=== PATIENT | female | born 1965 | race African-American/Black ===

== ENCOUNTER 2019-07-21 09:50 | Emergency (ER) | payer BC ==
[2019-07-21] MEDS ORDERED: MECLIZINE HCL 25 MG TABLET PO ONE (10:39)
[2019-07-21] MEDS ORDERED: ASPIRIN 81 MG TABLET, CHEWABLE PO ONE (10:40)
--- NOTE | 2019-07-21 10:41 | ER Document Report ---
ED Medical Screen (RME) - General Chief Complaint: Chest Pain Stated Complaint: CHEST PAIN Time Seen by Provider: 07/21/19 10:35 Primary Care Provider: OSVALDO PARDO MD [Primary Care Provider] - Follow up as needed Notes: Patient is a 54-year-old female who presents to the emergency department with a chief complaint of chest pain and dizziness. Patient states that her chest pain started last night. She states that it was at first a sharp pain and then it subsided and is now a constant pain. Patient also states that she feels dizzy. Patient has a past medical history of fibromyalgia, lactose intolerant, GERD, a nemia, headaches. Exam: S1, S2. Regular rate. I have greeted and performed a rapid initial assessment of this patient. A comprehensive ED assessment and evaluation of the patient, analysis of test results and completion of medical decision making process will be conducted by an additional ED providers. TRAVEL OUTSIDE OF THE [place] IN LAST 30 DAYS: No - Related Data Allergies/Adverse Reactions: amitriptyline [Amitriptyline] Allergy (Verified 07/21/19 10:32) itching propoxyphene napsylate [From Darvocet-N 100] Adverse Reaction (Mild, Verified 07/21/19 10:32) hot,nauseated Home Medications: gabapentin. estridol. miratizine. zyrtec. citilopram. vitamin d. fibromyalgia. lactose intolerant. gerd. anemia. headaches. dizziness Past Medical History - Social History Chew tobacco use (# tins/day): No Frequency of alcohol use: None Drug Abuse: None - Past Medical History Cardiac Medical History: Denies: Hx Coronary Artery Disease, Hx Heart Attack, Hx Hypertension Pulmonary Medical History: Denies: Hx Asthma Neurological Medical History: Reports: Hx Migraine. Denies: Hx Cerebrovascular Accident, Hx Seizures Endocrine Medical History: Denies: Hx Diabetes Mellitus Type 1, Hx Diabetes Mellitus Type 2 GI Medical History: Denies: Hx Hepatitis, Hx Hiatal Hernia, Hx Ulcer Musculoskeltal Medical History: Reports Hx Fibromyalgia Infectious Medical History: Denies: Hx Hepatitis Past Surgical History: Reports: Hx Hysterectomy. Denies: Hx Mastectomy, Hx Open Heart Surgery, Hx Pacemaker - Immunizations Immunizations up to date: Yes Physical Exam - Vital signs Vitals: Temp Pulse Resp BP Pulse Ox 98.2 F 73 18 125/71 95 07/21/19 10:17 07/21/19 10:17 07/21/19 10:17 07/21/19 10:17 07/21/19 10:17 Course - Vital Signs Vital signs: Temp Pulse Resp BP Pulse Ox 98.2 F 73 18 125/71 95 07/21/19 10:17 07/21/19 10:17 07/21/19 10:17 07/21/19 10:17 07/21/19 10:17 Doctor's Discharge - Discharge Referrals: OSVALDO PARDO MD [Primary Care Provider] - Follow up as needed
[2019-07-21] MEDS ORDERED: NORMAL SALINE 1000 ML 1,000 ML IV ONE (10:42)
[2019-07-21 11:30] LABS: ABSOLUTE LYMPHOCYTES (AUTO) 1.7 10^3/uL (0.5-4.7); ABSOLUTE MONOCYTES (AUTO) 0.4 10^3/uL (0.1-1.4); ABSOLUTE NEUT (AUTO) 2.5 10^3/uL (1.7-8.2); BASOPHILS % (AUTO) 0.7 % (0-2); EOSINOPHILS % (AUTO) 0.6 % (0-6); HEMATOCRIT 34.3 % (36.0-47.0); HEMOGLOBIN 11.3 g/dL (12.0-15.5); LYMPHOCYTES % (AUTO) 36.5 % (13-45); MEAN CORPUSCULAR HEMOGLOBIN 28.8 pg (27.0-33.4); MEAN CORPUSCULAR HGB CONC 32.9 g/dL (32.0-36.0); MEAN CORPUSCULAR VOLUME 87 fl (80-97); MONOCYTES % (AUTO) 7.6 % (3-13); PLATELET COUNT 283 10^3/uL (150-450); RED BLOOD COUNT 3.93 10^6/uL (3.72-5.28); RED CELL DISTRIBUTION WIDTH 14.2 % (11.5-14.0); SEGMENTED NEUTROPHILS % (AUTO) 54.6 % (42-78); TOTAL CELLS COUNTED % (AUTO) 100 %; WHITE BLOOD COUNT 4.6 10^3/uL (4.0-10.5)
--- NOTE | 2019-07-21 11:47 | RADIOLOGY REPORT (SQ) ---
EXAM DESCRIPTION: CHEST SINGLE VIEW COMPLETED DATE/TIME: 07/21/2019 11:24 am REASON FOR STUDY: chest pain COMPARISON: None. EXAM PARAMETERS: NUMBER OF VIEWS: One view. TECHNIQUE: Single frontal radiographic view of the chest acquired. RADIATION DOSE: NA LIMITATIONS: None. FINDINGS: LUNGS AND PLEURA: No opacities, masses or pneumothorax. No pleural effusion. MEDIASTINUM AND HILAR STRUCTURES: No masses. Contour normal. HEART AND VASCULAR STRUCTURES: Heart normal in size. Normal vasculature. BONES: No acute findings. HARDWARE: None in the chest. OTHER: No other significant finding. IMPRESSION: NO ACUTE RADIOGRAPHIC FINDING IN THE CHEST. TECHNICAL DOCUMENTATION: JOB ID: [id number] [employer]- All Rights Reserved Reading location - IP/workstation name: [email or web address]
[2019-07-21 11:55] LABS: ALBUMIN 4.6 g/dL (3.5-5.0); ALKALINE PHOSPHATASE 91 U/L (38-126); ANION GAP 8 (5-19); ASPARTATE AMINO TRANSFERASE 29 U/L (14-36); BILIRUBIN,DIRECT 0.1 mg/dL (0.0-0.4); BILIRUBIN,TOTAL 0.4 mg/dL (0.2-1.3); BLOOD UREA NITROGEN 15 mg/dL (7-20); CALCIUM 9.9 mg/dL (8.4-10.2); CARBON DIOXIDE 33 mmol/L (22-30); CHLORIDE 99 mmol/L (98-107); CREATINE KINASE 266 U/L (30-135); GLUCOSE 90 mg/dL (75-110); TOTAL PROTEIN 8.1 g/dL (6.3-8.2)
[2019-07-21 12:04] LABS: CREATINE KINASE MB 2.75 ng/mL (<4.55); NT PRO BNP 52 pg/mL (<125); TROPONIN I < 0.012 ng/mL
--- NOTE | 2019-07-21 12:30 | ER Document Report ---
ED General - General Chief Complaint: Chest Pain Stated Complaint: CHEST PAIN Time Seen by Provider: 07/21/19 10:35 Primary Care Provider: OSVALDO PARDO MD [ACTIVE STAFF] - Follow up as needed TRAVEL OUTSIDE OF THE [place] IN LAST 30 DAYS: No - HPI Notes: Patient is a 54-year-old female with a history of fibromyalgia, lactose intolerant, GERD, anemia, headaches who presents complaining of epigastric abdominal pain/lower chest pain area that began yesterday and has been constant since then. Patient states that she has not been eating as much, but has not noticed anything that worsens or improves her symptoms. Patient states that she did have some dizziness yesterday which is since resolved. She is otherwise urinating normally and having normal bowel movements. No history of DVT, PE, CAD, hypertension, DM. Denies any headache, fever, URI, sore throat, palpitations, syncope, cough, shortness of breath, wheeze, dyspnea, nausea/vomiting/diarrhea, urinary retention, dysuria, hematuria, or rash. - Related Data Allergies/Adverse Reactions: amitriptyline [Amitriptyline] Allergy (Verified 07/21/19 10:32) itching propoxyphene napsylate [From Darvocet-N 100] Adverse Reaction (Mild, Verified 07/21/19 10:32) hot,nauseated Home Medications: gabapentin. estridol. miratizine. zyrtec. citilopram. vit christensen d. fibromyalgia. lactose intolerant. gerd. anemia. headaches. dizziness Past Medical History - Social History Smoking Status: Unknown if Ever Smoked Chew tobacco use (# tins/day): No Frequency of alcohol use: None Drug Abuse: None Family History: Reviewed & Not Pertinent Patient has suicidal ideation: No Patient has homicidal ideation: No - Past Medical History Cardiac Medical History: Denies: Hx Coronary Artery Disease, Hx Heart Attack, Hx Hypertension Pulmonary Medical History: Denies: Hx Asthma Neurological Medical History: Reports: Hx Migraine. Denies: Hx Cerebrovascular Accident, Hx Seizures Endocrine Medical History: Denies: Hx Diabetes Mellitus Type 1, Hx Diabetes Mellitus Type 2 GI Medical History: Denies: Hx Hepatitis, Hx Hiatal Hernia, Hx Ulcer Musculoskeletal Medical History: Reports Hx Fibromyalgia Infectious Medical History: Denies: Hx Hepatitis Past Surgical History: Reports: Hx Hysterectomy. Denies: Hx Mastectomy, Hx Open Heart Surgery, Hx Pacemaker - Immunizations Immunizations up to date: Yes Review of Systems - Review of Systems -: Yes All other systems reviewed and negative Physical Exam - Vital signs Vitals: Temp Pulse Resp BP Pulse Ox 98.2 F 73 18 125/71 95 07/21/19 10:17 07/21/19 10:17 07/21/19 10:17 07/21/19 10:17 07/21/19 10:17 - Notes Notes: PHYSICAL EXAMINATION: GENERAL: Well-appearing, well-nourished and in no acute distress. HEAD: Atraumatic, normocephalic. EYES: Pupils equal round and reactive to light, extraocular movements intact, sclera anicteric, conjunctiva are normal. ENT: Nares patent and without discharge. oropharynx clear without exudates. No tonsilar hypertrophy or erythema. Moist mucous membranes. NECK: Normal range of motion, supple without lymphadenopathy LUNGS: Breath sounds clear to auscultation bilaterally and equal. No wheezes rales or rhonchi. HEART: Regular rate and rhythm without murmurs, rubs, gallops. ABDOMEN: Soft, nondistended abdomen. No guarding, no rebound. Normal bowel sounds present. No CVA tenderness bilaterally. + epigastric tenderness that correlates with pain described. Joyner neg. No tenderness at [place]. Musculoskeletal: FROM to passive/active. Strength 5+/5. Brigida neg. No asymmetry to LE's. Extremities: No cyanosis, clubbing, or edema b/l. Peripheral pulses 2+. Capillary refill less than 3 seconds. NEUROLOGICAL: Normal speech, normal gait. PSYCH: Normal mood, normal affect. SKIN: Warm, Dry, normal turgor, no rashes or lesions noted. Course - Re-evaluation Re-evalutation: 07/21/19 14:28 Patient is an afebrile, well-hydrated 54-year-old female who presents to the ED with epigastric pain, suspect gastritis. Vitals are acceptable without any significant tachycardia, tachypnea, or hypoxia. PE is otherwise unremarkable aside from the reproducible tenderness by palpating epigastrum which resolved immediatley after GI cocktail provided. Patient is nontoxic-appearing and is tolerating p.o. without any difficulties. Pt is currently asymptomatic. CBC, CMP, EKG/cardiac enzymes 2, chest x-ray are all unremarkable for any acute pathology. Patient has a heart score of <=3. Patient does not have any chest pain, dyspnea, or shortness of breath. Patient's presentation and symptomatology creates low suspicion for ACS, PE, pneumothorax, pericarditis, dissection, respiratory compromise, severe dehydration, sepsis, meningitis, perforated ulcer, acute abd, or other systemic emergent condition at this time. Patient is aware that this condition can change from initial presentation and she needs to monitor symptoms closely and seek medical attention for any acute changes. Pt is feeling better and would like to go home. Pt is on PPI at home. I will add carafate. Recommend conservative measures for symptoms. Recheck with your PCM in 2-3 days. Consider consult with GI/cardio. Return to the ED with any worsening/concerning symptoms otherwise as reviewed in discharge. Patient is in agreement. - Vital Signs Vital signs: Temp Pulse Resp BP Pulse Ox 98.2 F 73 20 113/77 99 07/21/19 10:17 07/21/19 10:17 07/21/19 14:02 07/21/19 14:02 07/21/19 14:02 - Laboratory Result Diagrams: 07/21/19 11:01 07/21/19 11:01 Laboratory results interpreted by me: 07/21/19 07/21/19 11:01 11:01 Hgb 11.3 L Hct 34.3 L RDW 14.2 H Carbon Dioxide 33 H Est GFR (MDRD) Non-Af 53 L Creatine Kinase 266 H Discharge - Discharge Clinical Impression: Epigastric pain Condition: Stable Disposition: HOME, SELF-CARE Additional Instructions: Maintain adequate fluid and food intake Avoid spices, caffeine, alcohol tylenol if needed Monitor for any worsening symptoms Make sure you are staying hydrated enough to urinate and have normal BM's Recheck with your PCM in 2-3 days Consider consult with Gastroenterology/Cardiology for ongoing/worsening symptoms Return to the ED with any worsening symptoms and/or development of fever, headache, chest pain, palpitations, syncope, shortness of breath, trouble breathing, abdominal pain, n/v/d, blood in stool/urine, weakness, or other worsening symptoms that are concerning to you. Prescriptions: Sucralfate [Carafate] 1 gm PO BID #100 ml Referrals: OSVALDO PARDO MD [ACTIVE STAFF] - Follow up as needed EWEJE,PETER, MD [ACTIVE STAFF] - Follow up as needed ISIAH DUTTON MD [ACTIVE STAFF] - Follow up as needed
[2019-07-21] MEDS ORDERED: MAG HYDROX/AL HYDROX/SIMETH SUSP 30 ML UDCUP PO ONE (12:47)
[2019-07-21] MEDS ORDERED: LIDOCAINE 2% VISCOUS SOLN 20 ML UDCUP PO ONE (12:47)
[2019-07-21] MEDS ORDERED: METOCLOPRAMIDE HCL ORAL SOLN 10 MG/10 ML UDCUP PO ONE (12:47)
--- NOTE | 2019-07-21 13:26 | EKG REPORT ---
SEVERITY:- ABNORMAL ECG - SINUS RHYTHM PROBABLE ANTEROSEPTAL INFARCT, AGE INDETERM : Confirmed by: Navdeep Amaro MD 21-Jul-2019 13:25:43
[2019-07-21 14:38] VITALS: BP 131/80
== END 2019-07-21 14:52 | disposition home or self-care (01) ==
LOC: ER 09:50
DX: R10.13 Epigastric pain (principal); R07.9 Chest pain, unspecified; Z90.710 Acquired absence of both cervix and uterus
CPT/HCPCS: 93005; 36415; 82553; 82550; 83690; 85025; 80053; 84484; 83880; 71045; 93010; J3490; J7030; 99284